=== PATIENT | male | born 1995 | race Caucasian/White ===

== ENCOUNTER 2018-12-11 17:03 | Inpatient (IN) ==
[2018-12-11] MEDS ORDERED: PROMETHAZINE 25 MG/1 ML VIAL IM PRN (17:38)
[2018-12-11] MEDS: SODIUM CHLORIDE 0.9% 1,000 ML IV SCH ×2 (17:45→22:37)
[2018-12-11] MEDS ORDERED: DEXTROSE 50% 25 GM/50 ML VIAL IV PRN (17:52)
[2018-12-11] MEDS ORDERED: GLUCAGON 1 MG VIAL IM PRN (17:52)
[2018-12-11] MEDS ORDERED: SODIUM CHLORIDE 0.9% 2,500 ML IV ONE (17:53)
[2018-12-11] MEDS: ACETAMINOPHEN 325 MG TABLET PO PRN (18:01)
[2018-12-11] MEDS: ENOXAPARIN 80 MG/0.8 ML SYRINGE SUBCUT SCH (18:01)
[2018-12-11] MEDS ORDERED: ACETAMINOPHEN 500 MG TABLET PO ONE (18:12)
[2018-12-11] MEDS ORDERED: IBUPROFEN 800 MG TABLET PO ONE (18:36)
[2018-12-11] MEDS: CEFTAROLINE 600 MG in SODIUM CHLORIDE 0.9% 100 ML IV SCH (18:43)
[2018-12-11 19:08] LABS: Basophils # 0.1 10*3/uL (0.0-0.2); Basophils % 0.3 % (0.0-0.8); Hematocrit 37.4 VOL% (42.0-52.0); Hemoglobin 13.4 GM/DL (14.0-18.0); Immature Granulocytes % 0.7 %; Immature Granulocytes Absolute 0.12 #; Lymphocytes # 0.7 10*3/uL (1.4-4.0); Mean Corpuscular HGB Conc 35.8 GM/DL (32-36); Mean Corpuscular Hemoglobin 31 PG (27-34); Mean Platelet Volume 11.1 FL (9.6-12.0); Monocytes # 1.9 10*3/uL (0.11-0.8); Monocytes % 10.8 % (1.7-12.7); Neutrophils # 14.5 10*3/uL (1.4-7.4); Neutrophils % 84.2 % (38.7-73.9); Platelet Count 168 T/CUMM (130-400); Red Blood Count 4.35 MC/CUMM (3.8-5.5); White Blood Count 17.2 T/CUMM (4-12)
[2018-12-11 19:35] LABS: Albumin 2.9 G/DL (3.4-5.0); Bilirubin,Total 1.2 MG/DL (0.2-1.0); Calcium 7.8 MG/DL (8.5-10.1); Osmolality,Calculated 259.1 MOS/KG (273-304); Potassium 2.8 MMOL/L (3.5-5.1); Total Protein 7.1 G/DL (6.4-8.3)
[2018-12-11 20:13] LABS: Band Neutrophils 19 % (0-10); Lymphocytes 3 % (20-55); Segmented Neutrophils 68 % (50-85); Total Cells Counted 100
[2018-12-11 20:14] LABS: Platelet Estimate Adequate
[2018-12-11] MEDS: POTASSIUM CHLORIDE 20 MEQ TABLET PO PRN (20:41)
[2018-12-11] MEDS: INSULIN LISPRO 100 UNIT/ML SUBCUT SCH (20:45)
[2018-12-12] MEDS: POTASSIUM CHLORIDE 20 MEQ TABLET PO PRN ×3 (00:57→05:01)
[2018-12-12] MEDS: ONDANSETRON 4 MG/2 ML VIAL IV PRN ×2 (01:01→08:33)
[2018-12-12] MEDS: ACETAMINOPHEN 325 MG TABLET PO PRN ×3 (04:04→13:26)
[2018-12-12 05:18] LABS: Basophils % 0.3 % (0.0-0.8); Hematocrit 32.5 VOL% (42.0-52.0); Immature Granulocytes % 0.8 %; Lymphocytes # 0.6 10*3/uL (1.4-4.0); Lymphocytes % 4.5 % (21.2-54.2); Mean Corpuscular HGB Conc 34.8 GM/DL (32-36); Mean Corpuscular Hemoglobin 30 PG (27-34); Mean Corpuscular Volume 87.1 FL (87-102); Mean Platelet Volume 11.4 FL (9.6-12.0); Monocytes # 1.2 10*3/uL (0.11-0.8); Monocytes % 9.1 % (1.7-12.7); Neutrophils # 11.3 10*3/uL (1.4-7.4); Neutrophils % 85.3 % (38.7-73.9); Platelet Count 141 T/CUMM (130-400); Red Blood Count 3.73 MC/CUMM (3.8-5.5); Red Cell Distribution Width 13.2 % (9.3-17.3); White Blood Count 13.2 T/CUMM (4-12)
[2018-12-12 05:33] LABS: Hemoglobin 11.3 GM/DL (14.0-18.0)
[2018-12-12 05:43] LABS: Albumin 2.2 G/DL (3.4-5.0); Bilirubin,Total 1.2 MG/DL (0.2-1.0); Calcium 7.3 MG/DL (8.5-10.1); Osmolality,Calculated 270.1 MOS/KG (273-304); Potassium 3.4 MMOL/L (3.5-5.1); Total Protein 5.8 G/DL (6.4-8.3)
[2018-12-12 05:44] LABS: Band Neutrophils 8 % (0-10); Hypochromasia 1+; Lymphocytes 5 % (20-55); Platelet Estimate Adequate; Segmented Neutrophils 82 % (50-85); Total Cells Counted 100
[2018-12-12] MEDS: SODIUM CHLORIDE 0.9% 1,000 ML IV SCH ×2 (06:48→15:56)
[2018-12-12] MEDS: CEFTAROLINE 600 MG in SODIUM CHLORIDE 0.9% 100 ML IV SCH (07:10)
[2018-12-12] MEDS: PANTOPRAZOLE 40 MG TABLET PO SCH (08:47)
[2018-12-12] MEDS: INSULIN LISPRO 100 UNIT/ML SUBCUT SCH ×4 (10:20→20:38)
[2018-12-12] MEDS: VANCOMYCIN INJ 1,250 MG in SODIUM CHLORIDE 0.9% 250 ML IV SCH (17:33)
[2018-12-12] MEDS: ENOXAPARIN 80 MG/0.8 ML SYRINGE SUBCUT SCH (18:21)
[2018-12-12] MEDS: ALBUTEROL/IPRATROPIUM 3 ML NEB RESP TX SCH (19:19)
[2018-12-13] MEDS: SODIUM CHLORIDE 0.9% 1,000 ML IV SCH ×3 (00:14→13:22)
[2018-12-13] MEDS: ALBUTEROL/IPRATROPIUM 3 ML NEB RESP TX SCH ×4 (00:26→19:17)
[2018-12-13] MEDS: VANCOMYCIN INJ 1,250 MG in SODIUM CHLORIDE 0.9% 250 ML IV SCH ×3 (00:50→16:50)
[2018-12-13 06:58] LABS: Calcium 7.2 MG/DL (8.5-10.1); Osmolality,Calculated 266.2 MOS/KG (273-304); Potassium 3.2 MMOL/L (3.5-5.1)
[2018-12-13] MEDS: POTASSIUM CHLORIDE 20 MEQ TABLET PO PRN ×4 (07:38→16:50)
[2018-12-13] MEDS: ACETAMINOPHEN 325 MG TABLET PO PRN ×2 (07:39→17:51)
[2018-12-13] MEDS: INSULIN LISPRO 100 UNIT/ML SUBCUT SCH ×4 (08:31→20:55)
[2018-12-13] MEDS: PANTOPRAZOLE 40 MG TABLET PO SCH (09:52)
[2018-12-13] MEDS: ENOXAPARIN 80 MG/0.8 ML SYRINGE SUBCUT SCH (14:49)
[2018-12-13] MEDS: SODIUM CHLOR 0.9% KCL 20 MEQ 20 MEQ/1,000 ML BAG IV SCH (16:50)
[2018-12-14] MEDS: ACETAMINOPHEN 325 MG TABLET PO PRN (01:00)
[2018-12-14] MEDS: ALBUTEROL/IPRATROPIUM 3 ML NEB RESP TX SCH ×4 (01:17→20:01)
[2018-12-14] MEDS: SODIUM CHLOR 0.9% KCL 20 MEQ 20 MEQ/1,000 ML BAG IV SCH ×5 (01:27→15:38)
[2018-12-14] MEDS: VANCOMYCIN INJ 1,250 MG in SODIUM CHLORIDE 0.9% 250 ML IV SCH ×2 (01:27→20:36)
[2018-12-14] MEDS: ENOXAPARIN 80 MG/0.8 ML SYRINGE SUBCUT SCH ×2 (02:37→14:32)
[2018-12-14 05:41] LABS: Basophils % 0.3 % (0.0-0.8); Eosinophils # 0.2 10*3/uL (0.0-0.87); Eosinophils % 2.2 % (0.00-10.9); Hematocrit 34.9 VOL% (42.0-52.0); Hemoglobin 11.9 GM/DL (14.0-18.0); Immature Granulocytes % 0.4 %; Immature Granulocytes Absolute 0.03 #; Lymphocytes # 1.6 10*3/uL (1.4-4.0); Lymphocytes % 20.6 % (21.2-54.2); Mean Corpuscular HGB Conc 34.1 GM/DL (32-36); Mean Corpuscular Hemoglobin 31 PG (27-34); Mean Corpuscular Volume 89.9 FL (87-102); Mean Platelet Volume 11.7 FL (9.6-12.0); Monocytes # 0.6 10*3/uL (0.11-0.8); Monocytes % 7.4 % (1.7-12.7); Neutrophils # 5.4 10*3/uL (1.4-7.4); Neutrophils % 69.1 % (38.7-73.9); Platelet Count 187 T/CUMM (130-400); Red Blood Count 3.88 MC/CUMM (3.8-5.5); Red Cell Distribution Width 13.4 % (9.3-17.3); White Blood Count 7.7 T/CUMM (4-12)
[2018-12-14 06:10] LABS: Band Neutrophils 2 % (0-10); Calcium 7.5 MG/DL (8.5-10.1); Eosinophils 1 % (0-10); Lymphocytes 17 % (20-55); Osmolality,Calculated 269.8 MOS/KG (273-304); Platelet Estimate Normal; Segmented Neutrophils 74 % (50-85); Total Cells Counted 100
[2018-12-14 06:11] LABS: Hypochromasia 1+
[2018-12-14] MEDS: INSULIN LISPRO 100 UNIT/ML SUBCUT SCH ×4 (07:42→20:39)
[2018-12-14] MEDS ORDERED: SODIUM CHLORIDE 0.9% 500 ML IV ONE (08:43)
[2018-12-14] MEDS ORDERED: VANCOMYCIN INJ 1,750 MG in SODIUM CHLORIDE 0.9% 500 ML IV ONE (09:00)
[2018-12-14] MEDS: POTASSIUM CHLORIDE 20 MEQ TABLET PO SCH ×3 (09:52→17:11)
[2018-12-14] MEDS: PANTOPRAZOLE 40 MG TABLET PO SCH (09:52)
[2018-12-14 13:42] LABS: HIV Antigen/Antibody Result Nonreactive (Nonreactive); Hepatitis A Ab IgM Quant 0.13 Index; Hepatitis A Ab IgM Result Negative (Negative); Hepatitis B Core IgM Quant 0.12 Index; Hepatitis B Core IgM Result Negative (Negative); Hepatitis B Surface Ag Quant < 0.10 Index; Hepatitis B Surface Ag Result Negative (Negative); Hepatitis C Virus Ab Quant 0.09 Index; Hepatitis C Virus Ab Result Negative (Negative)
[2018-12-15] MEDS: SODIUM CHLOR 0.9% KCL 20 MEQ 20 MEQ/1,000 ML BAG IV SCH ×4 (01:17→15:05)
[2018-12-15] MEDS: ALBUTEROL/IPRATROPIUM 3 ML NEB RESP TX SCH ×4 (01:25→19:39)
[2018-12-15] MEDS: ENOXAPARIN 80 MG/0.8 ML SYRINGE SUBCUT SCH ×2 (02:23→13:51)
[2018-12-15] MEDS: VANCOMYCIN INJ 1,250 MG in SODIUM CHLORIDE 0.9% 250 ML IV SCH ×4 (02:24→20:35)
[2018-12-15] MEDS: INSULIN LISPRO 100 UNIT/ML SUBCUT SCH ×4 (07:31→20:23)
[2018-12-15] MEDS: PANTOPRAZOLE 40 MG TABLET PO SCH (08:12)
[2018-12-15] MEDS ORDERED: HydrOXYzine PAMOATE 50 MG CAPSULE PO PRN (14:23)
[2018-12-15] MEDS: ONDANSETRON 4 MG/2 ML VIAL IV PRN (15:35)
[2018-12-15] MEDS: WARFARIN 7.5 MG TABLET PO SCH (18:30)
[2018-12-16] MEDS: ALBUTEROL/IPRATROPIUM 3 ML NEB RESP TX SCH ×5 (01:36→23:57)
[2018-12-16] MEDS: SODIUM CHLOR 0.9% KCL 20 MEQ 20 MEQ/1,000 ML BAG IV SCH ×3 (01:46→16:35)
[2018-12-16] MEDS: VANCOMYCIN INJ 1,250 MG in SODIUM CHLORIDE 0.9% 250 ML IV SCH ×4 (03:03→19:44)
[2018-12-16] MEDS: ENOXAPARIN 80 MG/0.8 ML SYRINGE SUBCUT SCH ×2 (03:03→14:30)
[2018-12-16] MEDS: PANTOPRAZOLE 40 MG TABLET PO SCH (08:13)
[2018-12-16] MEDS: INSULIN LISPRO 100 UNIT/ML SUBCUT SCH ×4 (08:30→21:19)
[2018-12-16] MEDS: WARFARIN 7.5 MG TABLET PO SCH (18:05)
[2018-12-17] MEDS: SODIUM CHLOR 0.9% KCL 20 MEQ 20 MEQ/1,000 ML BAG IV SCH ×3 (03:53→16:55)
[2018-12-17] MEDS: VANCOMYCIN INJ 1,250 MG in SODIUM CHLORIDE 0.9% 250 ML IV SCH ×4 (03:54→20:40)
[2018-12-17] MEDS: ENOXAPARIN 80 MG/0.8 ML SYRINGE SUBCUT SCH ×2 (04:09→15:41)
[2018-12-17 06:10] LABS: INR 1.9
[2018-12-17] MEDS: ALBUTEROL/IPRATROPIUM 3 ML NEB RESP TX SCH ×3 (08:21→19:55)
[2018-12-17] MEDS: PANTOPRAZOLE 40 MG TABLET PO SCH (08:46)
[2018-12-17 08:50] LABS: Basophils % 0.5 % (0.0-0.8); Eosinophils # 0.3 10*3/uL (0.0-0.87); Eosinophils % 3.9 % (0.00-10.9); Hematocrit 31.3 VOL% (42.0-52.0); Hemoglobin 10.4 GM/DL (14.0-18.0); Immature Granulocytes % 1.3 %; Lymphocytes # 1.8 10*3/uL (1.4-4.0); Lymphocytes % 23.6 % (21.2-54.2); Mean Corpuscular HGB Conc 33.2 GM/DL (32-36); Mean Corpuscular Hemoglobin 31 PG (27-34); Mean Corpuscular Volume 91.8 FL (87-102); Monocytes # 0.9 10*3/uL (0.11-0.8); Monocytes % 11.5 % (1.7-12.7); Neutrophils # 4.4 10*3/uL (1.4-7.4); Neutrophils % 59.2 % (38.7-73.9); Platelet Count 346 T/CUMM (130-400); Red Blood Count 3.41 MC/CUMM (3.8-5.5); Red Cell Distribution Width 13.3 % (9.3-17.3); White Blood Count 7.5 T/CUMM (4-12)
[2018-12-17] MEDS: INSULIN LISPRO 100 UNIT/ML SUBCUT SCH ×3 (09:15→16:55)
[2018-12-17 09:18] LABS: Alanine Aminotransferase 83 U/L (16-61); Albumin 1.9 G/DL (3.4-5.0); Alkaline Phosphatase 115 U/L (45-117); Aspartate Amino Transferase 101 U/L (0-37); Bilirubin,Total < 0.39 MG/DL (0.2-1.0); Blood Urea Nitrogen 5 MG/DL (7-18); Calcium 7.9 MG/DL (8.5-10.1); Glucose 98 MG/DL (74-106); Osmolality,Calculated 271.7 MOS/KG (273-304); Sodium 138 MMOL/L (136-145)
[2018-12-17] MEDS: WARFARIN 7.5 MG TABLET PO SCH (17:37)
[2018-12-18] MEDS: INSULIN LISPRO 100 UNIT/ML SUBCUT SCH ×5 (00:26→21:00)
[2018-12-18] MEDS: SODIUM CHLOR 0.9% KCL 20 MEQ 20 MEQ/1,000 ML BAG IV SCH ×3 (00:30→17:32)
[2018-12-18] MEDS: ALBUTEROL/IPRATROPIUM 3 ML NEB RESP TX SCH ×4 (01:26→19:48)
[2018-12-18] MEDS: ENOXAPARIN 80 MG/0.8 ML SYRINGE SUBCUT SCH (02:01)
[2018-12-18] MEDS: VANCOMYCIN INJ 1,250 MG in SODIUM CHLORIDE 0.9% 250 ML IV SCH ×4 (02:01→21:31)
[2018-12-18 08:26] LABS: Basophils % 0.5 % (0.0-0.8); Eosinophils # 0.3 10*3/uL (0.0-0.87); Eosinophils % 3.4 % (0.00-10.9); Hematocrit 33.1 VOL% (42.0-52.0); Hemoglobin 11.1 GM/DL (14.0-18.0); Immature Granulocytes % 1.7 %; Immature Granulocytes Absolute 0.14 #; Lymphocytes # 1.8 10*3/uL (1.4-4.0); Lymphocytes % 21.4 % (21.2-54.2); Mean Corpuscular HGB Conc 33.5 GM/DL (32-36); Mean Corpuscular Hemoglobin 31 PG (27-34); Mean Corpuscular Volume 91.2 FL (87-102); Mean Platelet Volume 9.7 FL (9.6-12.0); Monocytes # 0.8 10*3/uL (0.11-0.8); Monocytes % 9.2 % (1.7-12.7); Neutrophils # 5.3 10*3/uL (1.4-7.4); Neutrophils % 63.8 % (38.7-73.9); Platelet Count 429 T/CUMM (130-400); Red Blood Count 3.63 MC/CUMM (3.8-5.5); Red Cell Distribution Width 13.2 % (9.3-17.3); White Blood Count 8.2 T/CUMM (4-12)
[2018-12-18] MEDS: PANTOPRAZOLE 40 MG TABLET PO SCH (08:49)
[2018-12-18 08:55] LABS: Alanine Aminotransferase 115 U/L (16-61); Albumin 2.1 G/DL (3.4-5.0); Alkaline Phosphatase 122 U/L (45-117); Aspartate Amino Transferase 115 U/L (0-37); Bilirubin,Total < 0.39 MG/DL (0.2-1.0); Blood Urea Nitrogen 4 MG/DL (7-18); Calcium 8.1 MG/DL (8.5-10.1); Glucose 105 MG/DL (74-106); Osmolality,Calculated 269.8 MOS/KG (273-304); Potassium 3.9 MMOL/L (3.5-5.1); Sodium 137 MMOL/L (136-145); Total Protein 6.5 G/DL (6.4-8.3)
[2018-12-18 09:44] LABS: INR 2.6
[2018-12-18 14:20] LABS: Bartonella PCR Negative; Specimen source BLOOD
[2018-12-19] MEDS: ALBUTEROL/IPRATROPIUM 3 ML NEB RESP TX SCH ×4 (00:15→22:41)
[2018-12-19] MEDS: SODIUM CHLOR 0.9% KCL 20 MEQ 20 MEQ/1,000 ML BAG IV SCH ×3 (00:19→17:11)
[2018-12-19] MEDS: VANCOMYCIN INJ 1,250 MG in SODIUM CHLORIDE 0.9% 250 ML IV SCH ×4 (03:40→20:47)
[2018-12-19 06:01] LABS: Basophils # 0.1 10*3/uL (0.0-0.2); Basophils % 0.7 % (0.0-0.8); Eosinophils # 0.3 10*3/uL (0.0-0.87); Eosinophils % 3.6 % (0.00-10.9); Hematocrit 35.8 VOL% (42.0-52.0); Hemoglobin 11.6 GM/DL (14.0-18.0); Immature Granulocytes % 1.2 %; Lymphocytes # 1.7 10*3/uL (1.4-4.0); Mean Corpuscular HGB Conc 32.4 GM/DL (32-36); Mean Corpuscular Hemoglobin 30 PG (27-34); Mean Corpuscular Volume 92.3 FL (87-102); Mean Platelet Volume 9.5 FL (9.6-12.0); Monocytes # 0.7 10*3/uL (0.11-0.8); Monocytes % 9.2 % (1.7-12.7); Neutrophils # 5.2 10*3/uL (1.4-7.4); Neutrophils % 64.3 % (38.7-73.9); Platelet Count 459 T/CUMM (130-400); Red Blood Count 3.88 MC/CUMM (3.8-5.5); Red Cell Distribution Width 13.4 % (9.3-17.3); White Blood Count 8.1 T/CUMM (4-12)
[2018-12-19 06:21] LABS: Bilirubin,Total 1.2 MG/DL (0.2-1.0); Calcium 8.3 MG/DL (8.5-10.1); Osmolality,Calculated 271.7 MOS/KG (273-304); Potassium 3.8 MMOL/L (3.5-5.1); Total Protein 6.7 G/DL (6.4-8.3)
[2018-12-19] MEDS: INSULIN LISPRO 100 UNIT/ML SUBCUT SCH ×4 (07:52→21:07)
[2018-12-19] MEDS: PANTOPRAZOLE 40 MG TABLET PO SCH (08:39)
[2018-12-19] MEDS: WARFARIN 5 MG TABLET PO SCH (17:48)
[2018-12-20] MEDS: ALBUTEROL/IPRATROPIUM 3 ML NEB RESP TX SCH ×4 (02:55→19:27)
[2018-12-20] MEDS: VANCOMYCIN INJ 1,250 MG in SODIUM CHLORIDE 0.9% 250 ML IV SCH ×4 (03:28→20:04)
[2018-12-20] MEDS: SODIUM CHLOR 0.9% KCL 20 MEQ 20 MEQ/1,000 ML BAG IV SCH (03:28)
[2018-12-20 05:06] LABS: Basophils # 0.1 10*3/uL (0.0-0.2); Basophils % 0.6 % (0.0-0.8); Eosinophils # 0.2 10*3/uL (0.0-0.87); Eosinophils % 2.7 % (0.00-10.9); Hematocrit 33.9 VOL% (42.0-52.0); Hemoglobin 11.1 GM/DL (14.0-18.0); Immature Granulocytes % 1.2 %; Lymphocytes # 1.7 10*3/uL (1.4-4.0); Lymphocytes % 19.8 % (21.2-54.2); Mean Corpuscular HGB Conc 32.7 GM/DL (32-36); Mean Corpuscular Hemoglobin 30 PG (27-34); Mean Corpuscular Volume 92.9 FL (87-102); Mean Platelet Volume 9.3 FL (9.6-12.0); Monocytes # 0.6 10*3/uL (0.11-0.8); Monocytes % 7.6 % (1.7-12.7); Neutrophils # 5.7 10*3/uL (1.4-7.4); Neutrophils % 68.1 % (38.7-73.9); Platelet Count 426 T/CUMM (130-400); Red Blood Count 3.65 MC/CUMM (3.8-5.5); Red Cell Distribution Width 13.3 % (9.3-17.3); White Blood Count 8.4 T/CUMM (4-12)
[2018-12-20 05:22] LABS: PT Patient Result 21.2 SECS
[2018-12-20 05:32] LABS: Albumin 2.1 G/DL (3.4-5.0); Calcium 8.5 MG/DL (8.5-10.1); Osmolality,Calculated 271.8 MOS/KG (273-304); Potassium 3.7 MMOL/L (3.5-5.1); Total Protein 6.7 G/DL (6.4-8.3)
[2018-12-20] MEDS: INSULIN LISPRO 100 UNIT/ML SUBCUT SCH ×4 (09:14→20:03)
[2018-12-20] MEDS: PANTOPRAZOLE 40 MG TABLET PO SCH (09:20)
[2018-12-20] MEDS: NICOTINE 21 MG/24 HR PATCH TRANSDERM SCH (11:47)
[2018-12-20] MEDS: ACETAMINOPHEN 325 MG TABLET PO PRN (16:36)
[2018-12-20] MEDS: WARFARIN 5 MG TABLET PO SCH (17:43)
[2018-12-21] MEDS: ALBUTEROL/IPRATROPIUM 3 ML NEB RESP TX SCH ×4 (01:53→19:05)
[2018-12-21] MEDS: VANCOMYCIN INJ 1,250 MG in SODIUM CHLORIDE 0.9% 250 ML IV SCH ×3 (03:30→19:27)
[2018-12-21 06:20] LABS: Basophils # 0.1 10*3/uL (0.0-0.2); Basophils % 0.6 % (0.0-0.8); Eosinophils # 0.2 10*3/uL (0.0-0.87); Eosinophils % 2.4 % (0.00-10.9); Hematocrit 35.2 VOL% (42.0-52.0); Hemoglobin 11.4 GM/DL (14.0-18.0); Immature Granulocytes % 0.8 %; Immature Granulocytes Absolute 0.08 #; Lymphocytes # 1.7 10*3/uL (1.4-4.0); Lymphocytes % 17.9 % (21.2-54.2); Mean Corpuscular HGB Conc 32.4 GM/DL (32-36); Mean Corpuscular Hemoglobin 30 PG (27-34); Mean Corpuscular Volume 92.9 FL (87-102); Mean Platelet Volume 9.5 FL (9.6-12.0); Monocytes # 0.7 10*3/uL (0.11-0.8); Monocytes % 7.8 % (1.7-12.7); Neutrophils # 6.7 10*3/uL (1.4-7.4); Neutrophils % 70.5 % (38.7-73.9); Platelet Count 469 T/CUMM (130-400); Red Blood Count 3.79 MC/CUMM (3.8-5.5); Red Cell Distribution Width 13.4 % (9.3-17.3); White Blood Count 9.5 T/CUMM (4-12)
[2018-12-21 06:35] LABS: Albumin 2.3 G/DL (3.4-5.0); Bilirubin,Total 0.7 MG/DL (0.2-1.0); Calcium 8.7 MG/DL (8.5-10.1); Osmolality,Calculated 270.8 MOS/KG (273-304); Potassium 3.7 MMOL/L (3.5-5.1); Total Protein 7.6 G/DL (6.4-8.3)
[2018-12-21] MEDS: INSULIN LISPRO 100 UNIT/ML SUBCUT SCH ×4 (07:54→20:39)
[2018-12-21 09:00] LABS: EBV Nuclear Ag Antibody Positive (Negative); EBV Virus IgG Ab Positive (Negative); EBV Virus IgM Ab Negative (Negative)
[2018-12-21] MEDS: PANTOPRAZOLE 40 MG TABLET PO SCH (09:36)
[2018-12-21] MEDS: NICOTINE 21 MG/24 HR PATCH TRANSDERM SCH (09:37)
[2018-12-21] MEDS: ACETAMINOPHEN 325 MG TABLET PO PRN (16:29)
[2018-12-21] MEDS: WARFARIN 5 MG TABLET PO SCH (17:53)
[2018-12-22] MEDS: ALBUTEROL/IPRATROPIUM 3 ML NEB RESP TX SCH ×4 (01:04→19:23)
[2018-12-22] MEDS: VANCOMYCIN INJ 1,500 MG in SODIUM CHLORIDE 0.9% 500 ML IV SCH ×3 (03:07→21:43)
[2018-12-22] MEDS: INSULIN LISPRO 100 UNIT/ML SUBCUT SCH ×4 (08:26→20:47)
[2018-12-22] MEDS: NICOTINE 21 MG/24 HR PATCH TRANSDERM SCH (09:35)
[2018-12-22] MEDS: PANTOPRAZOLE 40 MG TABLET PO SCH (09:35)
[2018-12-22 10:43] LABS: PT Patient Result 21.4 SECS
[2018-12-22] MEDS: ACETAMINOPHEN 325 MG TABLET PO PRN (16:02)
[2018-12-22] MEDS: WARFARIN 5 MG TABLET PO SCH (19:22)
[2018-12-23] MEDS: ALBUTEROL/IPRATROPIUM 3 ML NEB RESP TX SCH ×4 (00:18→19:29)
[2018-12-23] MEDS: VANCOMYCIN INJ 1,500 MG in SODIUM CHLORIDE 0.9% 500 ML IV SCH ×3 (04:45→20:16)
[2018-12-23] MEDS: INSULIN LISPRO 100 UNIT/ML SUBCUT SCH ×4 (07:43→20:15)
[2018-12-23] MEDS: NICOTINE 21 MG/24 HR PATCH TRANSDERM SCH (08:37)
[2018-12-23] MEDS: PANTOPRAZOLE 40 MG TABLET PO SCH (08:37)
[2018-12-23] MEDS: ACETAMINOPHEN 325 MG TABLET PO PRN (12:42)
[2018-12-23] MEDS: WARFARIN 5 MG TABLET PO SCH (17:52)
[2018-12-24] MEDS: ALBUTEROL/IPRATROPIUM 3 ML NEB RESP TX SCH ×4 (00:55→19:13)
[2018-12-24] MEDS: VANCOMYCIN INJ 1,500 MG in SODIUM CHLORIDE 0.9% 500 ML IV SCH ×3 (03:17→20:17)
[2018-12-24] MEDS: INSULIN LISPRO 100 UNIT/ML SUBCUT SCH ×4 (07:27→20:26)
[2018-12-24] MEDS: PANTOPRAZOLE 40 MG TABLET PO SCH (09:29)
[2018-12-24] MEDS: NICOTINE 21 MG/24 HR PATCH TRANSDERM SCH (09:29)
[2018-12-24] MEDS: WARFARIN 5 MG TABLET PO SCH (18:22)
[2018-12-24] MEDS: ACETAMINOPHEN 325 MG TABLET PO PRN (20:25)
[2018-12-25] MEDS: ALBUTEROL/IPRATROPIUM 3 ML NEB RESP TX SCH ×4 (00:10→19:30)
[2018-12-25] MEDS: VANCOMYCIN INJ 1,500 MG in SODIUM CHLORIDE 0.9% 500 ML IV SCH ×3 (04:55→19:41)
[2018-12-25] MEDS: INSULIN LISPRO 100 UNIT/ML SUBCUT SCH ×4 (08:27→20:27)
[2018-12-25] MEDS: PANTOPRAZOLE 40 MG TABLET PO SCH (08:28)
[2018-12-25] MEDS: NICOTINE 21 MG/24 HR PATCH TRANSDERM SCH (08:35)
[2018-12-25 09:24] LABS: INR 1.7; PT Patient Result 18.4 SECS
[2018-12-25] MEDS: WARFARIN 3 MG TABLET PO SCH (17:27)
[2018-12-26] MEDS: ALBUTEROL/IPRATROPIUM 3 ML NEB RESP TX SCH ×4 (01:42→20:39)
[2018-12-26] MEDS: VANCOMYCIN INJ 1,500 MG in SODIUM CHLORIDE 0.9% 500 ML IV SCH ×3 (03:18→19:53)
[2018-12-26] MEDS: INSULIN LISPRO 100 UNIT/ML SUBCUT SCH ×4 (07:25→21:27)
[2018-12-26] MEDS: PANTOPRAZOLE 40 MG TABLET PO SCH (08:41)
[2018-12-26] MEDS: NICOTINE 21 MG/24 HR PATCH TRANSDERM SCH (08:41)
[2018-12-26] MEDS: WARFARIN 3 MG TABLET PO SCH (18:05)
[2018-12-26] MEDS: ACETAMINOPHEN 325 MG TABLET PO PRN (19:48)
[2018-12-26] MEDS: ZALEPLON 5 MG CAPSULE PO PRN (21:27)
[2018-12-27] MEDS: ALBUTEROL/IPRATROPIUM 3 ML NEB RESP TX SCH ×3 (00:37→12:15)
[2018-12-27] MEDS: VANCOMYCIN INJ 1,500 MG in SODIUM CHLORIDE 0.9% 500 ML IV SCH ×3 (03:11→20:36)
[2018-12-27] MEDS: INSULIN LISPRO 100 UNIT/ML SUBCUT SCH ×4 (07:30→20:36)
[2018-12-27] MEDS: NICOTINE 21 MG/24 HR PATCH TRANSDERM SCH (08:52)
[2018-12-27] MEDS: PANTOPRAZOLE 40 MG TABLET PO SCH (08:52)
[2018-12-27 10:01] LABS: INR 1.6; PT Patient Result 17.2 SECS
[2018-12-27] MEDS ORDERED: WARFARIN 10 MG TABLET PO SCH (18:00)
[2018-12-27] MEDS: ACETAMINOPHEN 325 MG TABLET PO PRN (20:36)
[2018-12-27] MEDS: ZALEPLON 5 MG CAPSULE PO PRN (21:31)
[2018-12-28] MEDS: VANCOMYCIN INJ 1,500 MG in SODIUM CHLORIDE 0.9% 500 ML IV SCH ×3 (04:28→20:28)
[2018-12-28] MEDS: NICOTINE 21 MG/24 HR PATCH TRANSDERM SCH (08:47)
[2018-12-28] MEDS: PANTOPRAZOLE 40 MG TABLET PO SCH (08:47)
[2018-12-28] MEDS: ACETAMINOPHEN 325 MG TABLET PO PRN (08:47)
[2018-12-28] MEDS: INSULIN LISPRO 100 UNIT/ML SUBCUT SCH ×3 (12:46→20:28)
[2018-12-28] MEDS: WARFARIN 7.5 MG TABLET PO SCH (18:42)
[2018-12-28] MEDS: ZALEPLON 5 MG CAPSULE PO PRN (21:09)
[2018-12-29] MEDS: VANCOMYCIN INJ 1,500 MG in SODIUM CHLORIDE 0.9% 500 ML IV SCH ×3 (05:06→20:56)
[2018-12-29] MEDS: WARFARIN 7.5 MG TABLET PO SCH ×2 (08:15→18:45)
[2018-12-29] MEDS: INSULIN LISPRO 100 UNIT/ML SUBCUT SCH ×4 (08:16→21:01)
[2018-12-29] MEDS: PANTOPRAZOLE 40 MG TABLET PO SCH (09:05)
[2018-12-29] MEDS: NICOTINE 21 MG/24 HR PATCH TRANSDERM SCH (09:05)
[2018-12-29 10:19] LABS: INR 2.3; PT Patient Result 24.8 SECS
[2018-12-29] MEDS: ZALEPLON 5 MG CAPSULE PO PRN (21:00)
[2018-12-30] MEDS: VANCOMYCIN INJ 1,500 MG in SODIUM CHLORIDE 0.9% 500 ML IV SCH ×3 (03:50→20:58)
[2018-12-30] MEDS: INSULIN LISPRO 100 UNIT/ML SUBCUT SCH ×3 (06:50→16:16)
[2018-12-30] MEDS: PANTOPRAZOLE 40 MG TABLET PO SCH (09:29)
[2018-12-30] MEDS: NICOTINE 21 MG/24 HR PATCH TRANSDERM SCH (09:30)
[2018-12-30] MEDS: WARFARIN 7.5 MG TABLET PO SCH (17:14)
[2018-12-30] MEDS: ZALEPLON 5 MG CAPSULE PO PRN (20:58)
[2018-12-31] MEDS: INSULIN LISPRO 100 UNIT/ML SUBCUT SCH ×5 (00:15→20:36)
[2018-12-31] MEDS: VANCOMYCIN INJ 1,500 MG in SODIUM CHLORIDE 0.9% 500 ML IV SCH ×3 (05:21→20:32)
[2018-12-31] MEDS: NICOTINE 21 MG/24 HR PATCH TRANSDERM SCH (08:12)
[2018-12-31] MEDS: PANTOPRAZOLE 40 MG TABLET PO SCH (08:12)
[2018-12-31 11:13] LABS: INR 2.7
[2018-12-31 11:19] LABS: PT Patient Result 29.6 SECS
[2018-12-31] MEDS: WARFARIN 7.5 MG TABLET PO SCH (17:38)
[2018-12-31] MEDS: ZALEPLON 5 MG CAPSULE PO PRN (20:32)
[2019-01-01] MEDS: VANCOMYCIN INJ 1,500 MG in SODIUM CHLORIDE 0.9% 500 ML IV SCH ×3 (04:56→21:51)
[2019-01-01] MEDS: INSULIN LISPRO 100 UNIT/ML SUBCUT SCH (07:56)
[2019-01-01] MEDS: PANTOPRAZOLE 40 MG TABLET PO SCH (08:33)
[2019-01-01] MEDS: NICOTINE 21 MG/24 HR PATCH TRANSDERM SCH (08:33)
[2019-01-01 10:31] LABS: INR 2.7; PT Patient Result 29.4 SECS
[2019-01-01] MEDS: ACETAMINOPHEN 325 MG TABLET PO PRN ×2 (13:57→20:10)
[2019-01-01] MEDS: WARFARIN 7.5 MG TABLET PO SCH (18:05)
[2019-01-01] MEDS: guaiFENesin/DM ER 600-30 MG TABLET PO SCH (20:10)
[2019-01-01] MEDS ORDERED: ZALEPLON 5 MG CAPSULE PO ONE (21:38)
[2019-01-02] MEDS: VANCOMYCIN INJ 1,500 MG in SODIUM CHLORIDE 0.9% 500 ML IV SCH ×3 (05:44→21:01)
[2019-01-02] MEDS: NICOTINE 21 MG/24 HR PATCH TRANSDERM SCH (08:16)
[2019-01-02] MEDS: guaiFENesin/DM ER 600-30 MG TABLET PO SCH ×2 (08:17→21:01)
[2019-01-02] MEDS: PANTOPRAZOLE 40 MG TABLET PO SCH (08:17)
[2019-01-02] MEDS: MONTELUKAST 10 MG TABLET PO SCH (10:36)
[2019-01-02] MEDS ORDERED: WARFARIN 5 MG TABLET PO SCH (16:44)
[2019-01-02] MEDS: ACETAMINOPHEN 325 MG TABLET PO PRN (18:28)
[2019-01-03] MEDS: VANCOMYCIN INJ 1,500 MG in SODIUM CHLORIDE 0.9% 500 ML IV SCH ×3 (05:30→20:49)
[2019-01-03 06:15] LABS: INR 2.1
[2019-01-03 06:17] LABS: PT Patient Result 22.3 SECS
[2019-01-03] MEDS: guaiFENesin/DM ER 600-30 MG TABLET PO SCH ×2 (09:11→20:48)
[2019-01-03] MEDS: NICOTINE 21 MG/24 HR PATCH TRANSDERM SCH (09:11)
[2019-01-03] MEDS: PANTOPRAZOLE 40 MG TABLET PO SCH (09:11)
[2019-01-03] MEDS: MONTELUKAST 10 MG TABLET PO SCH (09:11)
[2019-01-03] MEDS: BENZONATATE 100 MG CAPSULE PO SCH ×3 (09:47→20:48)
[2019-01-03 10:15] LABS: PT Patient Result 21.8 SECS
[2019-01-03] MEDS ORDERED: methylPREDNISolone SOD SUC 40 MG/1 ML VIAL IV ONE (10:25)
[2019-01-03] MEDS ORDERED: TUBERCULIN SKIN TEST 0.1 ML SYRINGE INTRADERM ONE (11:30)
[2019-01-03] MEDS: WARFARIN 7.5 MG TABLET PO SCH (18:19)
[2019-01-03] MEDS: ZALEPLON 5 MG CAPSULE PO PRN (22:16)
[2019-01-04] MEDS: VANCOMYCIN INJ 1,500 MG in SODIUM CHLORIDE 0.9% 500 ML IV SCH ×3 (05:12→23:01)
[2019-01-04] MEDS: MONTELUKAST 10 MG TABLET PO SCH (08:11)
[2019-01-04] MEDS: guaiFENesin/DM ER 600-30 MG TABLET PO SCH ×2 (08:11→20:23)
[2019-01-04] MEDS: NICOTINE 21 MG/24 HR PATCH TRANSDERM SCH (08:11)
[2019-01-04] MEDS: BENZONATATE 100 MG CAPSULE PO SCH ×3 (08:11→20:23)
[2019-01-04] MEDS: PANTOPRAZOLE 40 MG TABLET PO SCH (08:11)
[2019-01-04 18:00] LABS: INR 2.4
[2019-01-04 18:06] LABS: PT Patient Result 25.5 SECS
[2019-01-04] MEDS: WARFARIN 7.5 MG TABLET PO SCH (18:36)
[2019-01-04] MEDS ORDERED: guaiFENesin 200 MG/10 ML UDCUP PO PRN (18:52)
[2019-01-04] MEDS: ZALEPLON 5 MG CAPSULE PO PRN (20:22)
[2019-01-04] MEDS: ACETAMINOPHEN 325 MG TABLET PO PRN (20:22)
[2019-01-05 05:10] LABS: Basophils % 0.9 % (0.0-0.8); Eosinophils # 0.2 10*3/uL (0.0-0.87); Eosinophils % 4.2 % (0.00-10.9); Hematocrit 35.1 VOL% (42.0-52.0); Hemoglobin 11.5 GM/DL (14.0-18.0); Immature Granulocytes % 0.2 %; Immature Granulocytes Absolute 0.01 #; Lymphocytes # 1.8 10*3/uL (1.4-4.0); Lymphocytes % 41.9 % (21.2-54.2); Mean Corpuscular HGB Conc 32.8 GM/DL (32-36); Mean Corpuscular Hemoglobin 29 PG (27-34); Mean Corpuscular Volume 89.1 FL (87-102); Mean Platelet Volume 9.9 FL (9.6-12.0); Monocytes # 0.5 10*3/uL (0.11-0.8); Monocytes % 10.5 % (1.7-12.7); Neutrophils # 1.8 10*3/uL (1.4-7.4); Neutrophils % 42.3 % (38.7-73.9); Platelet Count 214 T/CUMM (130-400); Red Blood Count 3.94 MC/CUMM (3.8-5.5); Red Cell Distribution Width 12.8 % (9.3-17.3); White Blood Count 4.3 T/CUMM (4-12)
[2019-01-05 05:31] LABS: INR 2.5
[2019-01-05 05:33] LABS: PT Patient Result 27.2 SECS
[2019-01-05 06:05] LABS: Band Neutrophils 1 % (0-10); Eosinophils 4 % (0-10); Lymphocytes 42 % (20-55); Platelet Estimate Normal; Segmented Neutrophils 45 % (50-85); Total Cells Counted 100
[2019-01-05] MEDS: VANCOMYCIN INJ 1,500 MG in SODIUM CHLORIDE 0.9% 500 ML IV SCH ×3 (06:08→23:27)
[2019-01-05] MEDS: NICOTINE 21 MG/24 HR PATCH TRANSDERM SCH (09:31)
[2019-01-05] MEDS: guaiFENesin/DM ER 600-30 MG TABLET PO SCH ×2 (09:32→20:43)
[2019-01-05] MEDS: PANTOPRAZOLE 40 MG TABLET PO SCH (09:32)
[2019-01-05] MEDS: MONTELUKAST 10 MG TABLET PO SCH (09:32)
[2019-01-05] MEDS: BENZONATATE 100 MG CAPSULE PO SCH ×3 (09:32→20:43)
[2019-01-05] MEDS: WARFARIN 7.5 MG TABLET PO SCH (17:58)
[2019-01-05] MEDS: ACETAMINOPHEN 325 MG TABLET PO PRN (17:58)
[2019-01-05] MEDS: ZALEPLON 5 MG CAPSULE PO PRN (20:43)
[2019-01-06] MEDS: VANCOMYCIN INJ 1,500 MG in SODIUM CHLORIDE 0.9% 500 ML IV SCH ×3 (06:08→23:36)
[2019-01-06] MEDS: MONTELUKAST 10 MG TABLET PO SCH (10:58)
[2019-01-06] MEDS: guaiFENesin/DM ER 600-30 MG TABLET PO SCH ×2 (10:58→21:21)
[2019-01-06] MEDS: BENZONATATE 100 MG CAPSULE PO SCH ×3 (10:58→21:21)
[2019-01-06] MEDS: PANTOPRAZOLE 40 MG TABLET PO SCH (10:58)
[2019-01-06] MEDS: NICOTINE 21 MG/24 HR PATCH TRANSDERM SCH (10:58)
[2019-01-06] MEDS: ZALEPLON 5 MG CAPSULE PO PRN (21:21)
[2019-01-06] MEDS: WARFARIN 7.5 MG TABLET PO SCH (23:53)
[2019-01-07] MEDS: VANCOMYCIN INJ 1,500 MG in SODIUM CHLORIDE 0.9% 500 ML IV SCH ×3 (06:14→23:16)
[2019-01-07] MEDS: PANTOPRAZOLE 40 MG TABLET PO SCH (10:17)
[2019-01-07] MEDS: MONTELUKAST 10 MG TABLET PO SCH (10:17)
[2019-01-07] MEDS: guaiFENesin/DM ER 600-30 MG TABLET PO SCH ×2 (10:17→20:57)
[2019-01-07] MEDS: BENZONATATE 100 MG CAPSULE PO SCH ×3 (10:17→20:57)
[2019-01-07] MEDS: NICOTINE 21 MG/24 HR PATCH TRANSDERM SCH (10:18)
[2019-01-07] MEDS: WARFARIN 7.5 MG TABLET PO SCH (17:40)
[2019-01-07] MEDS: ZALEPLON 5 MG CAPSULE PO PRN (20:57)
[2019-01-08 05:05] LABS: INR 2.7
[2019-01-08 05:06] LABS: PT Patient Result 28.6 SECS
[2019-01-08 05:07] LABS: Albumin 2.6 G/DL (3.4-5.0); Calcium 7.9 MG/DL (8.5-10.1); Osmolality,Calculated 277.5 MOS/KG (273-304); Potassium 3.7 MMOL/L (3.5-5.1)
[2019-01-08] MEDS: VANCOMYCIN INJ 1,500 MG in SODIUM CHLORIDE 0.9% 500 ML IV SCH ×3 (06:16→23:10)
[2019-01-08] MEDS: guaiFENesin/DM ER 600-30 MG TABLET PO SCH ×2 (09:09→21:10)
[2019-01-08] MEDS: NICOTINE 21 MG/24 HR PATCH TRANSDERM SCH (09:09)
[2019-01-08] MEDS: MONTELUKAST 10 MG TABLET PO SCH (09:09)
[2019-01-08] MEDS: PANTOPRAZOLE 40 MG TABLET PO SCH (09:09)
[2019-01-08] MEDS: BENZONATATE 100 MG CAPSULE PO SCH ×3 (09:09→21:10)
[2019-01-08] MEDS: WARFARIN 7.5 MG TABLET PO SCH (17:37)
[2019-01-08] MEDS: ZALEPLON 5 MG CAPSULE PO PRN (21:10)
[2019-01-09] MEDS: VANCOMYCIN INJ 1,500 MG in SODIUM CHLORIDE 0.9% 500 ML IV SCH ×3 (06:24→23:04)
[2019-01-09] MEDS: BENZONATATE 100 MG CAPSULE PO SCH ×3 (09:15→20:21)
[2019-01-09] MEDS: guaiFENesin/DM ER 600-30 MG TABLET PO SCH ×2 (09:15→20:21)
[2019-01-09] MEDS: PANTOPRAZOLE 40 MG TABLET PO SCH (09:15)
[2019-01-09] MEDS: MONTELUKAST 10 MG TABLET PO SCH (09:15)
[2019-01-09] MEDS: NICOTINE 21 MG/24 HR PATCH TRANSDERM SCH (10:43)
[2019-01-09] MEDS: WARFARIN 7.5 MG TABLET PO SCH (18:46)
[2019-01-09] MEDS: ZALEPLON 5 MG CAPSULE PO PRN (20:21)
[2019-01-10] MEDS: VANCOMYCIN INJ 1,500 MG in SODIUM CHLORIDE 0.9% 500 ML IV SCH ×3 (06:16→23:46)
[2019-01-10 06:30] LABS: INR 2.5
[2019-01-10] MEDS: MONTELUKAST 10 MG TABLET PO SCH (09:22)
[2019-01-10] MEDS: guaiFENesin/DM ER 600-30 MG TABLET PO SCH ×2 (09:22→21:38)
[2019-01-10] MEDS: PANTOPRAZOLE 40 MG TABLET PO SCH (09:23)
[2019-01-10] MEDS: NICOTINE 21 MG/24 HR PATCH TRANSDERM SCH (09:23)
[2019-01-10] MEDS: BENZONATATE 100 MG CAPSULE PO SCH ×3 (09:23→21:38)
[2019-01-10] MEDS: WARFARIN 7.5 MG TABLET PO SCH (18:14)
[2019-01-10] MEDS: ZALEPLON 5 MG CAPSULE PO PRN (21:38)
[2019-01-11] MEDS: VANCOMYCIN INJ 1,500 MG in SODIUM CHLORIDE 0.9% 500 ML IV SCH ×3 (06:07→23:45)
[2019-01-11] MEDS: BENZONATATE 100 MG CAPSULE PO SCH ×3 (09:14→21:37)
[2019-01-11] MEDS: guaiFENesin/DM ER 600-30 MG TABLET PO SCH ×2 (09:14→21:37)
[2019-01-11] MEDS: PANTOPRAZOLE 40 MG TABLET PO SCH (09:14)
[2019-01-11] MEDS: MONTELUKAST 10 MG TABLET PO SCH (09:14)
[2019-01-11] MEDS: NICOTINE 21 MG/24 HR PATCH TRANSDERM SCH (09:15)
[2019-01-11] MEDS: WARFARIN 7.5 MG TABLET PO SCH (17:46)
[2019-01-12] MEDS: VANCOMYCIN INJ 1,500 MG in SODIUM CHLORIDE 0.9% 500 ML IV SCH (06:00)
[2019-01-12] MEDS: NICOTINE 21 MG/24 HR PATCH TRANSDERM SCH (09:21)
[2019-01-12] MEDS: MONTELUKAST 10 MG TABLET PO SCH (09:21)
[2019-01-12] MEDS: PANTOPRAZOLE 40 MG TABLET PO SCH (09:21)
[2019-01-12] MEDS: guaiFENesin/DM ER 600-30 MG TABLET PO SCH (09:21)
[2019-01-12] MEDS: BENZONATATE 100 MG CAPSULE PO SCH (09:21)
[2019-01-12 11:10] VITALS: BP 144/73
== END 2019-01-12 11:14 | disposition home or self-care (01) | DRG 871 ==
LOC: N.3E 17:03 → SUATTDRO 17:03
PROVIDERS: ADMIT Internal Medicine; ATTEND Family Medicine